=== PATIENT | male | born 1990 | race Caucasian/White ===

== ENCOUNTER 2017-04-01 05:21 | Emergency (ER) | payer BC ==
[~2017-04-01] VITALS: Ht 175.3 cm; Wt 86.2 kg
[2017-04-01] MEDS ORDERED: DOXYCYCLINE HY100 MG PO (07:06)
== END 2017-04-01 07:15 | disposition home or self-care (01) ==
LOC: ED 05:21
DX: N50.811 Right testicular pain (principal)
CPT/HCPCS: 76870; 81001; 99284

== ENCOUNTER 2020-05-28 13:58 | Emergency (ER) | payer OTHER, BC ==
[~2020-05-28] VITALS: Ht 175.3 cm; Wt 88.5 kg
[~2020-05-28 13:58] MED LIST: DOXYCYCLINE HY100 MG PO
[2020-05-28] MEDS ORDERED: VENTOLIN HFA18 GM INH (16:00)
[2020-05-28] MEDS ORDERED: PREDNISONE20 MG PO (16:00)
== END 2020-05-28 16:11 | disposition home or self-care (01) ==
LOC: ED 13:58
DX: J45.909 Unspecified asthma, uncomplicated (principal); Y26.XXXA Exposure to smoke, fire and flames, undetermined intent, initial encounter
CPT/HCPCS: 71045; 82375; 94640; 99285-25; J1100